=== PATIENT | female | born 1975 | race Caucasian/White ===

== ENCOUNTER 2023-08-16 11:45 | Outpatient (CLI) | payer BC, SELFPAY ==
[2023-08-16 12:10] LABS: Appearance Urine Sl Cloudy (Clear); Bilirubin Urine Negative (Negative); Blood Urine 3+ (Negative); Color Urine Light Yellow (Yellow); Glucose Urine UA Negative (Negative); Ketones Urine Negative (Negative); Leukocyte Esterase Ur 2+ (Negative); Nitrate Urine Negative (Negative); Protein Urine 1+ (Negative); Urobilinogen Urine 0.2 mg/dL (0.2-1.0)
[2023-08-16 12:16] LABS: Add Urine Microscopic? YES; RBC Urine 21-50 /hpf (0-2)
[2023-08-16 12:17] LABS: Bacteria Urine 3+ /hpf; Squamous Epithelial Cell Urine Few /hpf (Few); WBC Urine 16-20 /hpf (0-3)
== END 2023-08-16 11:46 | disposition home or self-care (01) ==
PROVIDERS: PCP Internal Medicine; Visit Provider Nurse Practitioner Family
DX: N39.0 Urinary tract infection, site not specified (principal)
CPT/HCPCS: 81001; 87086

== ENCOUNTER 2023-08-28 09:00 | Outpatient (CLI) | payer BC, SELFPAY ==
--- NOTE | ~2023-08-28 | CT_ITS ---
EXAMINATION: CT abdomen pelvis wo/w con DATE: 08/28/2023 10:56 INDICATION: Microhematuria with intermittent back pain TECHNIQUE: Computed tomography (CT) of the abdomen and pelvis was performed without intravenous contr ast. CT of the abdomen and pelvis was then performed with a total of 130 mL Omnipaque-350 intravenous contrast using a double-bolus technique for simultaneous opacification of the renal parenchyma and r enal collecting system. Automated exposure control and iterative reconstruction technique were employ ed. The dose-length product was 2191.53 mGy-cm. COMPARISON: None FINDINGS: Small calcified nodule left lower lobe consistent with old granulomatous disease. Heart size is nic l. No pericardial or pleural effusion. Postoperative change of prior sleeve gastrectomy with suture l ine along the greater curvature of the stomach. Liver, gallbladder, spleen, pancreas and bilateral ad renal glands are normal. Bilateral nephrolithiasis with 2.4 x 1.9 x 1.6 cm stone in the right renal p alvin, compatible to have 3 mm stones in a lower pole calyx of the right kidney and a couple 1-2 mm s tones in middle and lower pole calyces of the left kidney. There is mild right hydronephrosis. Contra st does however extend the length of the bilateral ureters. There is wall thickening narrowing the in traluminal contrast at the right ureteropelvic junction. No ureteral stones or other urothelial irreg ularities. Bladder is normal with prominent right-sided ureteral jet of contrast. Uterus and bilatera l adnexa are unremarkable. Bowels including the appendix are normal. No free intraperitoneal gas or f luid. No pathologically enlarged abdominal or pelvic lymphadenopathy. Bones are unremarkable. IMPRESSION: 1. Bilateral nephrolithiasis with mild right hydronephrosis which results either directly from the 2. 4 x 1.9 x 1.6 cm stone at the right renal pelvis or more likely due to stenosis resulting from wall t hickening at the right right ureteropelvic junction which could be either malignant, infectious or in flammatory in etiology. Would recommend urologic consultation. Reviewed, dictated and finalized at location B. IMPRESSION: 1. Bilateral nephrolithiasis with mild right hydronephrosis which results eithe r directly from the 2.4 x 1.9 x 1.6 cm stone at the right renal pelvis or more likely due to stenosis resulting from wall thickening at the right right ureter opelvic junction which could be either malignant, infectious or inflammatory in etiology. Would recommend urologic consultation.
[2023-08-28 09:32] LABS: Estimated Glomerular Filt Rate > 60
== END 2023-08-28 09:01 | disposition home or self-care (01) ==
PROVIDERS: PCP Internal Medicine; Visit Provider Internal Medicine
DX: R31.9 Hematuria, unspecified (principal); N20.0 Calculus of kidney
CPT/HCPCS: 74178; Q9967

== ENCOUNTER 2023-10-02 09:31 | Outpatient (CLI) | payer BC, SELFPAY ==
--- NOTE | ~2023-10-02 | DEXA_ITS ---
Bone Density Report Name: JOE CLINTON Age: 48 Sex: Female Ethnicity: White Date of : 1975 Indication: postmenopausal; screening for osteoporosis; height loss; Referring Provider: Tri Cancino Study: Bone densitometry was performed. Exam Date: October 02, 2023 Accession number: [id number] Bone Density: Region BMD T-score Z-score Classification AP Spine(L1-L4) 1.039 -0.1 0.7 Normal Femoral Neck (Left) 0.666 -1.7 -0.9 Osteopenia Total Hip (Left) 0.818 -1.0 -0.5 Normal Femoral Neck (Right) 0.684 -1.5 -0.7 Osteopenia Total Hip (Right) 0.910 -0.3 0.2 Normal Femoral Neck Mean 0.675 -1.6 -0.8 Osteopenia Total Hip Mean 0.864 -0.6 -0.2 Normal World Health Organization criteria for BMD impression classify patients as: Normal (T-score at or above -1.0), Osteopenia (T-score between -1.0 and -2.5), or Osteoporosis (T-score at or below -2.5). 10-year Fracture Risk(1): Major Osteoporotic Fracture 4.6% Hip Fracture 0.4% Reported Risk Factors: [place] (), Neck BMD=0.666, BMI=33.5 (1) FRAX(R) Version 3.08. Fracture probability calculated for an untreated patient. Fracture probability may be lower if the patient has received treatment. Clinical Information Provided by Patient: Patient maximum height was 66 Menopause Age: 44 No regular weight bearing exercise Drinks caffeinated beverages Onset of menses at age 9 Number of children 2 Impression: The patient has low bone mass, based on the Left Femoral Neck T-score. Discussion: BONE DENSITY IS LOW AT ONE OR MORE SKELETAL SITES. This patient's lowest T-score is low at one or more skeletal sites. It meets the World Health Organization's (WHO) criteria for ?low bone mass? (T-score between -1.0 and -2.5). The patient's 10-year risk of fracture as calculated by FRAX is less than the threshold where pharmacological therapy is recommended by the National Osteoporosis Foundation (NOF). However, all treatment decisions require clinical judgment and consideration of individual patient factors, including patient preferences, comorbidities, previous drug use, risk factors not captured in the FRAX model (e.g., frailty, falls, vitamin D deficiency, increased bone turnover, interval significant decline in bone density) and possible under or overestimation of fracture risk by FRAX. The patient should follow a healthful lifestyle (good nutrition with adequate calcium and vitamin D, and appropriate weight-bearing exercise). Follow-Up: Consider repeating this study in 2 to 3 years to reassess this patient's status, or sooner if there is some new clinical indication. Reported by: Dr. Aramis Bro on 10/02/2023 10:14:00 AM. Reviewed, dictated and finalized at location A.
--- NOTE | ~2023-10-02 | MM_ITS ---
EXAMINATION: MM screening [facility] w [facility] HISTORY: Screening TECHNIQUE: Craniocaudal and mediolateral oblique 3-D tomosynthesis images were obtained and synthetic 2-D images were generated. CAD analysis was submitted and interpreted. COMPARISON: No prior mammogram is available for comparison at this institution. BREAST PARENCHYMAL COMPOSITION: Not dense: There are scattered areas of fibroglandular density. FINDINGS: There is no evidence of suspicious mass, calcification, or architectural distortion to sugg est malignancy in either breast. There has been no suspicious interval change. IMPRESSION: 1. No mammographic evidence of malignancy. 2. Recommend routine screening mammography in one year. BI-RADS Category 1: Negative Reviewed, dictated and finalized at location B.
== END 2023-10-02 09:32 | disposition home or self-care (01) ==
LOC: CHSIMG 09:33
PROVIDERS: PCP Internal Medicine; Visit Provider Internal Medicine
DX: Z12.31 Encounter for screening mammogram for malignant neoplasm of breast (principal); Z78.0 Asymptomatic menopausal state; M85.89 Other specified disorders of bone density and structure, multiple sites
CPT/HCPCS: 77063; 77067; 77080

== ENCOUNTER 2024-02-04 00:13 | Day surgery (SDC) | payer BC, SELFPAY ==
[2024-01-14 14:23] VITALS: BMI 30.6
[2024-02-04 08:34] VITALS: BP 177/95; PULSE 70; RESP 18; TEMP 36.1; O2SAT 100
--- NOTE | 2024-02-04 08:45 | WPDANESEPPF ---
Anes - Initial Pre Proc Eval Procedure: Operation Date: 01/02/24 08:00 Proposed Procedures p Screening Colonoscopy - Skinny Marquis DO Operation Date: 02/04/24 10:00 Proposed Procedures p Screening Colonoscopy - Skinny Marquis DO Date/Time: 02/04/24 08:45 Surgeon: Skinny Marquis DO Pre Op Diagnosis: Neoplasm screening Patient Data Age: 48 Gender: F Height: 1.68 m Weight: 91.7 kg Last Vital Signs Temp 36.1 C L 02/04/24 08:34 Pulse 70 02/04/24 08:34 Resp 18 02/04/24 08:34 BP 177/95 H 02/04/24 08:34 Pulse Ox 100 02/04/24 08:34 O2 Del Method Room Air 02/04/24 08:34 Allergies Allergy/AdvReac Type Severity Reaction Status Date / Time doxycycline Allergy Rash Verified 02/04/24 08:33 Penicillins Allergy Rash Verified 02/04/24 08:33 Home Medications ?Medication ?Instructions ?Recorded ?Confirmed ?Type ashwagandha extract 500 mg capsule 500 mg PO DAILY 01/14/24 02/04/24 History multivitamin with minerals-folic 1 tablet PO DAILY 01/14/24 02/04/24 History acid 0.4 mg tablet Patient hx anesthesia problems: none Family hx anesthesia problems: none Results Review: All pre-operative results and documents have been reviewed as part of the pre-operative evaluation. [facility] [place] Social History Social History Smoking status: Never smoker Alcohol intake: never Substance use type: does not use Living arrangements: with family Spiritual care concerns: No Anes - Eval Final PreProcedure Day of Procedure 02/04/24 08:45 Patient weight: obese Heart: regular rate and rhythm Lungs: clear to auscultation Airway: Mallampati scale class III Neurological: alert and oriented Last oral intake: >/= 8 hours ASA classification: II Emergent: no Anesthetic plan: proceed Anesthesia type and monitoring: general GIVS and standard monitoring Results Review: All pre-operative results and documents have been reviewed as part of the pre-operative evaluation. Informed Consent: The patient's anesthetic plan and its attendant risks and benefits were discussed with the patient/family/POA. Questions were solicited and answers provided to the satisfaction of the patient/family/POA.
[2024-02-04] MEDS: LACTATED RINGERS 1,000 ML 150 ML IV CONT (09:05)
--- NOTE | 2024-02-04 10:01 | P.HP_ITS ---
H&P: HPI History of Present Illness Date/Time: 02/04/24 10:01 Chief Complaint: screening for colorectal cancer Narrative: this is a 48-year-old woman who presents for colonoscopy. She has never had a colonoscopy before. She denies any hematochezia or melena. She denies any close relatives with history of colon cancer. Review of Systems Review of Systems: All systems reviewed & are unremarkable except as noted in HPI and below Constitutional: Constitutional: Denies chills, Denies fever(s), Denies headache(s) and Denies weight loss Eyes: Eyes: Denies change in vision ENT: Denies dizziness, Denies headache(s), Denies neck mass and Denies throat swelling Cardiovascular: Cardiovascular: Denies chest pain, Denies lightheadedness and Denies dyspnea Respiratory: Respiratory: Denies cough, Denies dyspnea and Denies wheezing Gastrointestinal: Gastrointestinal: Denies abdominal pain, Denies change in bowel habits, Denies nausea and Denies vomiting Genitourinary: Genitourinary: Denies hematuria and Denies dysuria Musculoskeletal: Musculoskeletal: Reports as per HPI Integumentary/Breasts: Skin/Breast: Reports as per HPI Neurologic: Denies dizziness and Denies headache(s) Allergic/Immunologic: Allergic/Immunologic: Denies throat swelling and Denies wheezing [facility] Social History Social History Smoking status: Never smoker Alcohol intake: never Substance use type: does not use Living arrangements: with family Spiritual care concerns: No Meds Home Medications and Allergies Home Medications ?Medication ?Instructions ?Recorded ?Confirmed ?Type salvadordha extract 500 mg capsule 500 mg PO DAILY 01/14/24 02/04/24 History multivitamin with minerals-folic 1 tablet PO DAILY 01/14/24 02/04/24 History acid 0.4 mg tablet Allergies Allergy/AdvReac Type Severity Reaction Status Date / Time doxycycline Allergy Rash Verified 02/04/24 08:33 Penicillins Allergy Rash Verified 02/04/24 08:33 Vital Signs Vital Signs - 24 hr 02/04/24 08:34 Temperature 96.9 F L Pulse Rate 70 Respiratory Rate 18 Blood Pressure 177/95 H Pulse Oximetry 100 Oxygen Delivery Room Air Exam Const: General: no acute distress and alert Orientation/consciousness: patient oriented x3 HENMT: Head: normocephalic and atraumatic Ears: hearing grossly normal bilaterally Face/Nose/Sinus: Normal nares present Mouth: Yes Normal oral and palatal mucosa present Eyes: Periorbital: periorbital findings normal Sclera: sclerae normal EOM: EOMs intact bilaterally Neck: Neck: normal visual inspection, no lymphadenopathy and trachea midline Chest: Chest palpation & inspection: normal inspection of the chest Resp: Effort & Inspection: normal respiratory effort Auscultation: clear to auscultation bilaterally Cardio: Jugular venous distension: no JVD Rate: regular rate Rhythm: regular rhythm Heart sounds: S1 normal heart sound present and S2 normal heart sound present Peripheral pulses: Peripheral pulses 2+ throughout GI: Inspection: normal to inspection GI Palp: Yes Soft to palpation, No Tenderness to palpation present (GI), No Guarding due to palpation present (GI) and No Rebound tenderness present Percussion: Yes normal to percussion Auscultation: normal bowel sounds : General: Yes no CVA tenderness Back/Spine/Pelvis: Back: no CVA tenderness Neuro: General: patient oriented x3, no focal motor deficits and CN's II-XI intact bilaterally Cognition (Neuro): normal cognition Speech: normal speech Motor exam (neuro): 5/5 motor strength present throughout Extrem: General: capillary refill normal and no clubbing, cyanosis or edema Assessment and Plan Assessment and plan (1) Screening for colorectal cancer: Code(s): Z12.11 - Encounter for screening for malignant neoplasm of colon; Z12.12 - Encounter for screening for malignant neoplasm of rectum Status: Acute Assessment and Plan: I have recommended colonoscopy. I have discussed the procedure, risks, benefits, and alternatives. Questions were answered. Patient is agreeable to proceed.
[2024-02-04 10:30] VITALS: BP 132/78; PULSE 88; RESP 19; O2SAT 99
[2024-02-04 10:40] VITALS: BP 130/87; PULSE 65; RESP 22; O2SAT 100
[2024-02-04 10:50] VITALS: BP 152/91; PULSE 64; RESP 16; O2SAT 100
== END 2024-02-04 10:58 | disposition home or self-care (01) ==
PROVIDERS: PCP Internal Medicine; Visit Provider Surgery
PROC: 0DJD8ZZ Inspection of Lower Intestinal Tract, Via Natural or Artificial Opening Endoscopic (ICD-10-PCS; CPT 45378; principal; 2024-02-04 10:00)
DX: Z12.11 Encounter for screening for malignant neoplasm of colon (principal); E66.9 Obesity, unspecified; Z68.32 Body mass index [BMI] 32.0-32.9, adult
CPT/HCPCS: 45378; J2003; J2704; J7120

== ENCOUNTER 2024-11-16 07:23 | Outpatient (CLI) | payer BC, SELFPAY ==
--- NOTE | ~2024-11-16 | XR_ITS ---
X-rays left hip Indication: Pain Comparison: CT abdomen pelvis 08/28/2023 Technique: 2 views left hip Findings/Impression: No acute findings- 1. No fracture or dislocation left hip. 2. No significant degenerative changes. Reviewed, dictated and finalized at location R.
--- NOTE | ~2024-11-16 | MM_ITS ---
EXAMINATION: MM screening [facility] HISTORY: Screening TECHNIQUE: Craniocaudal and mediolateral oblique 3-D tomosynthesis images were obtained and synthetic 2-D images were generated. CAD analysis was submitted and interpreted. COMPARISON: 10/02/2023 BREAST PARENCHYMAL COMPOSITION: The breasts are almost entirely fatty. FINDINGS: There is no evidence of suspicious mass, calcification, or architectural distortion to suggest malignancy in either breast. IMPRESSION: 1. No mammographic evidence of malignancy. 2. Recommend routine screening mammography in one year. BI-RADS Category 1: Negative Reviewed, dictated and finalized at location B.
== END 2024-11-16 07:24 | disposition home or self-care (01) ==
PROVIDERS: PCP Internal Medicine; Visit Provider Internal Medicine
DX: M25.552 Pain in left hip (principal); Z12.31 Encounter for screening mammogram for malignant neoplasm of breast
CPT/HCPCS: 73502; 77063; 77067